=== PATIENT | female | born 1980 | race Native Hawaiian/Other Pacific Islander ===

== ENCOUNTER 2017-05-09 10:13 | Emergency (ER) | payer OTHER ==
[~2017-05-09] VITALS: Ht 165.1 cm; Wt 59.0 kg
[~2017-05-09 10:13] MED LIST: MEDR150I3 IM
[2017-05-09 11:01] LABS: PLATELET COUNT 285 K/uL (152-353)
[2017-05-09 11:22] LABS: POTASSIUM 3.8 mmol/L (3.6-5.2); SODIUM 138 mmol/L (136-145)
[2017-05-09 11:33] LABS: PARTIAL THROMBOPLASTIN TIME 23.1 SECONDS (24.5-33.6)
[2017-05-09 12:04] VITALS: BP 117/70; TEMP 98.6
== END 2017-05-09 12:15 | disposition home or self-care (01) ==
LOC: ED 10:13
DX: R07.89 Other chest pain (principal); K21.9 Gastro-esophageal reflux disease without esophagitis
CPT/HCPCS: 36415; 80053; 82150; 82550; 83690; 84484; 85027; 85610; 85730; 93005; 96374; 99284; J2270; J2405